=== PATIENT | female | born 1990 | race Caucasian/White ===

== ENCOUNTER → 2018-02-20 | Outpatient (CLI) | payer OTHER ==
--- NOTE | 2018-02-26 09:21 | MM ---
Reason for exam: screening (asymptomatic). Baseline mammogram. History: Family history of breast cancer in mother at age 47, breast cancer in 2 grandmothers, and breast cancer in aunt. Took hormonal contraceptives for 1 year beginning at age 14. Physical Findings: Nurse did not find any significant physical abnormalities on exam. MG Screening Mammo w CAD Bilateral CC and MLO view(s) were taken. The breast tissue is heterogeneously dense. This may lower the sensitivity of mammography. No suspicious abnormality. No significant new findings when compared with previous films. These results were verbally communicated with the patient and result sheet given to the patient on 02/20/18. ASSESSMENT: Negative, BI-RAD 1 RECOMMENDATION: Routine screening mammogram of both breasts at age 35. Patient should have next mammogram 10 years prior to first degree relative diagnosis of breast cancer, or sooner if clinnically indicated.
== END | disposition home or self-care (01) ==
LOC: RADMAMWWP 14:56
PROVIDERS: ATTEND Internal Medicine
DX: Z12.31 Encounter for screening mammogram for malignant neoplasm of breast (principal)
CPT/HCPCS: 77067

== ENCOUNTER 2018-07-20 10:00 | Emergency (ER) | payer OTHER ==
--- NOTE | 2018-07-20 10:54 | ED ---
Anxiety HPI - General Chief Complaint: Anxiety Stated Complaint: Dizzy, Clammy Hands Time Seen by Provider: 07/20/18 10:14 Source: patient Mode of arrival: ambulatory - History of Present Illness Initial Comments: 28-year-old female patient presents to the emergency department today for complaints of chest tightness, dizziness, and cold hands and feet. Patient states that she woke feeling this way this morning. Patient is concerned she may be withdrawing from a substance she uses known as Kratom. States that she mixes this with water and drinks it. She states she last used yesterday. She states she has had some mild nausea, but no vomiting. She denies any sweats or chest pain. Denies any alcohol or drug use. Denies any fevers or chills. Patient denies any recent rash, abdominal pain, diarrhea, constipation, back pain, numbness, tingling, hematuria, dysuria, urinary urgency, urinary frequency , headache, visual changes, or any other complaints. - Related Data Home Medications: Previous Rx's Medication Instructions Recorded LORazepam [Ativan] 1 mg PO BID 3 Days #6 tab 07/20/18 Allergies/Adverse Reactions: Allergies Allergy/AdvReac Type Severity Reaction Status Date / Time No Known Allergies Allergy Verified 07/20/18 12:15 Review of Systems ROS Statement: Those systems with pertinent positive or pertinent negative responses have been documented in the HPI. ROS Other: All systems not noted in ROS Statement are negative. Past Medical History Past Medical History: No Reported History History of Any Multi-Drug Resistant Organisms: None Reported Past Surgical History: Section Additional Past Surgical History / Comment(s): abdominal surgery for twisted bowel, wisdom teeth Past Psychological History: Anxiety Smoking Status: Current every day smoker Past Alcohol Use History: None Reported Past Drug Use History: None Reported General Exam Limitations: no limitations General appearance: alert, in no apparent distress, other (Physical well- developed, well-nourished adult female patient in no acute distress. Vital signs upon presentation are temperature 97.4F, pulse 90, respirations 20, blood pressure 122/80, pulse ox 99% on room air.) Eye exam: Present: normal appearance, PERRL, EOMI. Absent: scleral icterus, conjunctival injection, periorbital swelling ENT exam: Present: normal exam, normal oropharynx, mucous membranes moist Respiratory exam: Present: normal lung sounds bilaterally. Absent: respiratory distress, wheezes, rales, rhonchi, stridor Cardiovascular Exam: Present: regular rate, normal rhythm, normal heart sounds. Absent: systolic murmur, diastolic murmur, rubs, gallop, clicks GI/Abdominal exam: Present: soft, normal bowel sounds. Absent: distended, tenderness, guarding, rebound, rigid Extremities exam: Present: other (Hands and feet are cool to touch but neurovascular status is intact.) Neurological exam: Present: alert, oriented X3, CN II-XII intact Psychiatric exam: Present: normal affect, normal mood Skin exam: Present: warm, dry, intact, normal color. Absent: rash Course Vital Signs 07/20/18 10:03 Temperature 97.4 F L Pulse Rate 90 Respiratory 20 Rate Blood Pressure 122/80 O2 Sat by Pulse 99 Oximetry Medical Decision Making - Medical Decision Making 28-year-old female patient presents to the emergency department today for evaluation of dizziness, chest tightness, and cold hands and feet. Physical examination is relatively unremarkable. Lungs are clear to auscultation with good air movement. Chest x-ray shows no acute cardio pulmonary process. EKG shows normal sinus rhythm. Patient does admit to using Kratom an synthetic drug. She has not used this today. Her symptoms are most likely related to withdrawal from this. She'll be given Ativan for the next couple days. She is instructed to increase fluids. She is instructed to follow-up with her primary care physician for recheck in 1-2 days. Return parameters discussed in detail. They verbalize understanding and agree with this plan. - Lab Data Lab Results 07/20/18 Range/Units Unknown Urine HCG, Qual Not Detected (Not Detectd) - Radiology Data Radiology results: report reviewed, image reviewed Two-view x-ray of the chest is obtained. Report was reviewed in its entirety. Impression by Dr. Yoder shows no acute cardio pulmonary process. No significant change in prior studies. Disposition Clinical Impression: Anxiety, Drug withdrawal Disposition: HOME SELF-CARE Condition: Good Instructions: Anxiety (ED), Narcotic Withdrawal (ED) Additional Instructions: Take medication as directed. Follow-up through primary care physician for recheck as soon as possible. Return immediately for any new, worsening, or concerning symptoms Prescriptions: LORazepam [Ativan] 1 mg PO BID 3 Days #6 tab Is patient prescribed a controlled substance at d/c from ED?: Yes When asked, does pt state using other controlled substances?: No If prescribed controlled substance>3 days was MAPS reviewed?: Prescribed <3 Days Referrals: Gus Cleary MD [Primary Care Provider] - 1-2 days Time of Disposition: 12:34
--- NOTE | 2018-07-20 11:48 | XR ---
EXAMINATION TYPE: XR chest 2V DATE OF EXAM: 07/20/2018 COMPARISON: Chest x-ray and CTA chest May 27, 2013. HISTORY: Chest pain with irregular heartbeat TECHNIQUE: Frontal and lateral views of the chest are obtained. FINDINGS: There is no focal air space opacity, pleural effusion, or pneumothorax seen. The cardiac silhouette size is within normal limits. The osseous structures are intact. IMPRESSION: No acute cardiopulmonary process. No significant change from prior studies.
[2018-07-20] MEDS ORDERED: LORazepam 1 MG TAB PO STA (12:32)
[2018-07-20 12:55] LABS: Glucose,Whole Blood 83 mg/dL (75-99)
[2018-07-20 13:01] LABS: Amphetamine Screen,Urine Not Detected (NotDetected); Barbiturate Screen,Urine Not Detected (NotDetected); Benzodiazepines Screen,Urine Not Detected (NotDetected); Cocaine Screen,Urine Not Detected (NotDetected); Methadone Screen, Urine Not Detected (NotDetected); Opiate Screen,Urine Not Detected (NotDetected); Oxycodone Screen, Urine Not Detected (NotDetected); Phencyclidine Screen,Urine Not Detected (NotDetected); Tricyclic Antidepressant,Urine Not Detected (NotDetected); Urn Cannabinoid Scrn Not Detected (NotDetected)
[2018-07-20 13:07] VITALS: BP 108/70; PULSE 79; RESP 18; TEMP 97.5
== END 2018-07-20 13:01 | disposition home or self-care (01) ==
LOC: EC 10:00
DX: F41.9 Anxiety disorder, unspecified (principal); F19.939 Other psychoactive substance use, unspecified with withdrawal, unspecified; R07.89 Other chest pain; R42 Dizziness and giddiness; F17.200 Nicotine dependence, unspecified, uncomplicated
CPT/HCPCS: 36415; 71046; 80306; 81025; 93005; 99284

== ENCOUNTER 2018-12-09 18:39 | Emergency (ER) | payer OTHER ==
[2018-12-09 19:15] VITALS: RESP 18
[2018-12-09] MEDS ORDERED: KETOROLAC 30 MG/ML 1 ML VIAL IVP STA (19:21)
--- NOTE | 2018-12-09 19:27 | ED ---
Abdominal Pain HPI <Kit Mccall - Last Filed: 12/09/18 22:59> - General Source: patient, family Mode of arrival: ambulatory Limitations: no limitations <Tea Fernandez - Last Filed: 12/10/18 07:47> - General Chief Complaint: Abdominal Pain Stated Complaint: kidney pain - History of Present Illness Initial Comments: 28-year-old male presenting for right flank pain. Patient states that she was treated for a urinary tract infection about 2 weeks prior. She states she does not current dysuria however she has had some urgency and frequency. Patient states that she developed right flank pain that is somewhat on the left as well over the past 2 days. Patient states she has had fever and chills. Patient was concerned of a kidney infection. Patient denies history of kidney stones. Patient denies any chest pain dyspnea or dyspnea on exertion. She denies any hematuria. Patient denies nausea vomiting or diarrhea. Patient states she does have occasional crampy abdominal pain however was evaluated at a different hospital where CT of the abdomen and pelvis was obtained revealing no acute abnormality. Patient has since followed up with her primary care provider. Remaining review of system negative. Upon arrival patient's heart rate is elevated. Patient however does not appear toxic and is in no acute distress. Hemodynamically stable. (Tea Fernandez) - Related Data Home Medications Medication Instructions Recorded Confirmed Multivitamins, Thera [Multivitamin 1 tab PO DAILY 12/09/18 12/09/18 (formulary)] Omeprazole 20 mg PO DAILY 12/09/18 12/09/18 Allergies Allergy/AdvReac Type Severity Reaction Status Date / Time No Known Allergies Allergy Verified 12/09/18 20:25 Review of Systems ROS Other: All systems not noted in ROS Statement are negative. <Kit Mccall - Last Filed: 12/09/18 22:59> ROS Other: All systems not noted in ROS Statement are negative. <Tea Fernandez - Last Filed: 12/10/18 07:47> ROS Statement: Those systems with pertinent positive or pertinent negative responses have been documented in the HPI. Past Medical History Past Medical History: No Reported History History of Any Multi-Drug Resistant Organisms: None Reported Past Surgical History: Section Additional Past Surgical History / Comment(s): abdominal surgery for twisted bowel, wisdom teeth Past Psychological History: Anxiety Smoking Status: Current every day smoker Past Alcohol Use History: None Reported Past Drug Use History: None Reported <Tea Fernandez - Last Filed: 12/10/18 07:47> General Exam Limitations: no limitations <Tea Fernandez - Last Filed: 12/10/18 07:47> - General Exam Comments Initial Comments: General: The patient is awake and alert, in no distress, and does not appear acutely ill. Eye: +3 mm pupils are equal, round and reactive to light, extra-ocular movements are intact. No nystagmus. There is normal conjunctiva bilaterally. No signs of icterus. Ears, nose, mouth and throat: There are moist mucous membranes and no oral lesions. Neck: The neck is supple, there is no tenderness or JVD. Cardiovascular: There is a regular rate and rhythm. No murmur, rub or gallop is appreciated. Respiratory: Lungs are clear to auscultation, respirations are non-labored, breath sounds are equal. No wheezes, stridor, rales, or rhonchi. Gastrointestinal: non-distended, non-tender abdomen without masses or organomegaly noted. There is no rebound or guarding present. Right CVA tenderness. Bowel sounds are unremarkable. Musculoskeletal: Normal ROM, no tenderness. Strength 5/5. Sensation intact. Radial pulses equal bilaterally 2+. Neurological: A&O x 3. CN II-XII intact, There are no obvious motor or sensory deficits. Coordination appears grossly intact. Speech is normal. Skin: Skin is warm and dry and no rashes or lesions are noted. Psychiatric: Cooperative, appropriate mood & affect, normal judgment. (Tea Fernandez) Course Vital Signs 12/09/18 12/09/18 19:10 22:15 Temperature 98.6 F 98.0 F Pulse Rate 114 H 90 Respiratory 18 18 Rate Blood Pressure 105/62 99/64 O2 Sat by Pulse 100 97 Oximetry Medical Decision Making - Lab Data Result diagrams: 12/09/18 19:48 12/09/18 19:48 <Kit Mccall - Last Filed: 12/09/18 22:59> - Lab Data Result diagrams: 12/09/18 19:48 12/09/18 19:48 <Tea Fernandez - Last Filed: 12/10/18 07:47> - Medical Decision Making Patient is sent out to me by previous shift physician recreational assistant Tea Fernandez. Patient evaluated at bedside by myself reports that she is having ureteric symptoms. Oral examination showed mild erythema to the posterior oropharynx. Patient also having cramps and flulike symptoms. Vital sign out was follow-up with ultrasound. Labs are unremarkable. Ultrasound is negative. Patient clear for discharge. (Kit Mccall) 28-year-old male presented for right sided flank pain. Patient notes to chills and subjective fever at home. Patient states she was recently treated for urinary tract infection urinalysis revealed leukocyte esterase however no other signs of overt infection such as pyelonephritis. Patient has no leukocytosis. Patient is given 1 g of ceftriaxone. Given flank pain patient will have ultrasound the kidneys and daughter. Patient had recent CT of the abdomen and pelvis for a GI complaint last week at an outside facility she states that it was negative for acute process. She denies being told that there were stones. I did sign this patient out prior to the results the ultrasound, pt will have a little disposition determined by attending provider Dr. Mccall. (Tea Fernandez) - Lab Data Lab Results 12/09/18 12/09/18 12/09/18 Range/Units 19:48 19:48 19:48 WBC 4.2 (3.8-10.6) k/uL RBC 4.50 (3.80-5.40) m/uL Hgb 13.8 (11.4-16.0) gm/dL Hct 42.3 (34.0-46.0) % MCV 94.1 (80.0-100.0) fL MCH 30.8 (25.0-35.0) pg MCHC 32.7 (31.0-37.0) g/dL RDW 12.3 (11.5-15.5) % Plt Count 214 (150-450) k/uL Neutrophils % 80 % Lymphocytes % 11 % Monocytes % 4 % Eosinophils % 3 % Basophils % 1 % Neutrophils # 3.3 (1.3-7.7) k/uL Lymphocytes # 0.5 L (1.0-4.8) k/uL Monocytes # 0.2 (0-1.0) k/uL Eosinophils # 0.1 (0-0.7) k/uL Basophils # 0.0 (0-0.2) k/uL Sodium 138 (137-145) mmol/L Potassium 4.7 (3.5-5.1) mmol/L Chloride 103 (98-107) mmol/L Carbon Dioxide 26 (22-30) mmol/L Anion Gap 9 mmol/L BUN 12 (7-17) mg/dL Creatinine 0.69 (0.52-1.04) mg/dL Est GFR (CKD-EPI)AfAm >90 (>60 ml/min/1.73 sqM) Est GFR (CKD-EPI)NonAf >90 (>60 ml/min/1.73 sqM) Glucose 78 (74-99) mg/dL Plasma Lactic Acid Eric (0.7-2.0) mmol/L Calcium 10.0 (8.4-10.2) mg/dL Total Bilirubin 0.3 (0.2-1.3) mg/dL AST 27 (14-36) U/L ALT 30 (9-52) U/L Alkaline Phosphatase 35 L (38-126) U/L Total Protein 7.3 (6.3-8.2) g/dL Albumin 4.7 (3.5-5.0) g/dL Urine Color Light Yellow Urine Appearance Clear (Clear) Urine pH 7.0 (5.0-8.0) Ur Specific [place] 1.008 (1.001-1.035) Urine Protein Negative (Negative) Urine Glucose (UA) Negative (Negative) Urine Ketones Negative (Negative) Urine Blood Negative (Negative) Urine Nitrite Negative (Negative) Urine Bilirubin Negative (Negative) Urine Urobilinogen <2.0 (<2.0) mg/dL Ur Leukocyte Esterase Small H (Negative) Urine WBC 1 (0-5) /hpf Ur Squamous Epith Cells 2 (0-4) /hpf Urine Bacteria Rare H (None) /hpf Urine Mucus Rare H (None) /hpf Urine HCG, Qual (Not Detectd) 12/09/18 12/09/18 Range/Units 19:48 20:00 WBC (3.8-10.6) k/uL RBC (3.80-5.40) m/uL Hgb (11.4-16.0) gm/dL Hct (34.0-46.0) % MCV (80.0-100.0) fL MCH (25.0-35.0) pg MCHC (31.0-37.0) g/dL RDW (11.5-15.5) % Plt Count (150-450) k/uL Neutrophils % % Lymphocytes % % Monocytes % % Eosinophils % % Basophils % % Neutrophils # (1.3-7.7) k/uL Lymphocytes # (1.0-4.8) k/uL Monocytes # (0-1.0) k/uL Eosinophils # (0-0.7) k/uL Basophils # (0-0.2) k/uL Sodium (137-145) mmol/L Potassium (3.5-5.1) mmol/L Chloride (98-107) mmol/L Carbon Dioxide (22-30) mmol/L Anion Gap mmol/L BUN (7-17) mg/dL Creatinine (0.52-1.04) mg/dL Est GFR (CKD-EPI)AfAm (>60 ml/min/1.73 sqM) Est GFR (CKD-EPI)NonAf (>60 ml/min/1.73 sqM) Glucose (74-99) mg/dL Plasma Lactic Acid Eric 1.1 (0.7-2.0) mmol/L Calcium (8.4-10.2) mg/dL Total Bilirubin (0.2-1.3) mg/dL AST (14-36) U/L ALT (9-52) U/L Alkaline Phosphatase (38-126) U/L Total Protein (6.3-8.2) g/dL Albumin (3.5-5.0) g/dL Urine Color Urine Appearance (Clear) Urine pH (5.0-8.0) Ur Specific [place] (1.001-1.035) Urine Protein (Negative) Urine Glucose (UA) (Negative) Urine Ketones (Negative) Urine Blood (Negative) Urine Nitrite (Negative) Urine Bilirubin (Negative) Urine Urobilinogen (<2.0) mg/dL Ur Leukocyte Esterase (Negative) Urine WBC (0-5) /hpf Ur Squamous Epith Cells (0-4) /hpf Urine Bacteria (None) /hpf Urine Mucus (None) /hpf Urine HCG, Qual Not Detected (Not Detectd) Disposition Time of Disposition: 23:00 <Kit Mccall Filed: 12/09/18 22:59> Is patient prescribed a controlled substance at d/c from ED?: No <Tea Fernandez - Last Filed: 12/10/18 07:47> Clinical Impression: URI (upper respiratory infection) Disposition: HOME SELF-CARE Condition: Good Instructions (If sedation given, give patient instructions): Flank Pain (ED) Referrals: Gus Cleary MD [Primary Care Provider] - 1-2 days
[2018-12-09] MEDS ORDERED: SODIUM CHLORIDE 0.9% 1,000 ML IV ONE (20:01)
[2018-12-09 20:02] LABS: Basophils % (A) 1 %; Eosinophils # (A) 0.1 k/uL (0-0.7); Eosinophils % (A) 3 %; HCT 42.3 % (34.0-46.0); HGB 13.8 gm/dL (11.4-16.0); Lymphocytes # (A) 0.5 k/uL (1.0-4.8); Lymphocytes % (A) 11 %; MCH 30.8 pg (25.0-35.0); MCHC 32.7 g/dL (31.0-37.0); MCV 94.1 fL (80.0-100.0); Mean Platelet Volume 7.5; Monocytes # (A) 0.2 k/uL (0-1.0); Monocytes % (A) 4 %; Neutrophils # (A) 3.3 k/uL (1.3-7.7); Neutrophils % (A) 80 %; Platelet Count 214 k/uL (150-450); RDW 12.3 % (11.5-15.5); WBC 4.2 k/uL (3.8-10.6)
[2018-12-09] MEDS ORDERED: cefTRIAXone IN SWFI 1,000 MG/10 ML SYRINGE IVP STA (20:02)
[2018-12-09 20:06] LABS: Appearance,Urine Clear (Clear); Bacteria,Urine Rare /hpf; Bilirubin,Urine Negative (Negative); Blood,Urine Negative (Negative); Color,Urine Light Yellow; Glucose,Urine (UA) Negative (Negative); Ketones,Urine Negative (Negative); Leukocyte Esterase,Urine Small (Negative); Mucus,Urine Rare /hpf; Nitrite,Urine Negative (Negative); Protein,Urine Negative (Negative); Specific Gravity,Urine 1.008 (1.001-1.035); Squamous Epithelial Cell,Urine 2 /hpf (0-4); Urobilinogen,Urine <2.0 mg/dL (<2.0); WBC,Urine 1 /hpf (0-5)
[2018-12-09 20:08] LABS: ALT 30 U/L (9-52); AST 27 U/L (14-36); Albumin 4.7 g/dL (3.5-5.0); Alkaline Phosphatase 35 U/L (38-126); Anion Gap 9 mmol/L; Blood Urea Nitrogen 12 mg/dL (7-17); Carbon Dioxide 26 mmol/L (22-30); Chloride 103 mmol/L (98-107); Glucose 78 mg/dL (74-99); Potassium 4.7 mmol/L (3.5-5.1); Sodium 138 mmol/L (137-145); Total Bilirubin 0.3 mg/dL (0.2-1.3); Total Protein 7.3 g/dL (6.3-8.2)
--- NOTE | 2018-12-09 22:21 | US ---
EXAM: US Retroperitoneal Limited, Renal CLINICAL HISTORY: Stone TECHNIQUE: Real-time ultrasound of the retroperitoneum (limited) with image documentation. COMPARISON: No relevant prior studies available. FINDINGS: Right kidney: Right kidney measures up to 10.8 cm. No stones. No hydronephrosis. Left kidney: Left kidney measures up to 10 cm. No stones. No hydronephrosis. Bladder: Urinary bladder is unremarkable. Bilateral ureteral jets were not visualized. IMPRESSION: No acute findings.
[2018-12-09 22:25] VITALS: BP 99/64; PULSE 90; TEMP 98
--- NOTE | 2018-12-11 08:04 | CDI ---
Documentation Clarification OP Dear Kit PARRA DO, As reviewed the chart, patient complaint is abdomen pain and recently treated for UTI, labs and Ultrasound performed for UTI. But clinical impression given as upper respiratory infection. Please guide me on this. Thank you, Maame Navarro Chopper Gun Operator If you have any question, Please contact manager chinese at [phone] [facility]
== END 2018-12-09 23:13 | disposition home or self-care (01) ==
LOC: EC 18:39
DX: J06.9 Acute upper respiratory infection, unspecified (principal); R10.9 Unspecified abdominal pain; F17.200 Nicotine dependence, unspecified, uncomplicated; Z79.899 Other long term (current) drug therapy
CPT/HCPCS: 36415; 80053; 83605; 85025; 81001; 81025; 87040; 87086; 76770; 99284; 96374; 96375; 96361 ×3; J0696; J1885

== ENCOUNTER 2019-08-22 20:53 | Emergency (ER) | payer OTHER ==
[2019-08-22 21:34] LABS: Appearance,Urine Clear (Clear); Bacteria,Urine Rare /hpf; Bilirubin,Urine Negative (Negative); Blood,Urine Small (Negative); Color,Urine Light Yellow; Glucose,Urine (UA) Negative (Negative); Ketones,Urine Negative (Negative); Leukocyte Esterase,Urine Negative (Negative); Nitrite,Urine Negative (Negative); Protein,Urine Negative (Negative); RBC,Urine 2 /hpf (0-5); Specific Gravity,Urine 1.003 (1.001-1.035); Squamous Epithelial Cell,Urine 3 /hpf (0-4); Urobilinogen,Urine <2.0 mg/dL (<2.0); WBC,Urine 2 /hpf (0-5)
[2019-08-22] MEDS ORDERED: IPRATROPIUM-ALBUTEROL 3 ML NEB INHALATION STA (22:28)
[2019-08-22 22:53] LABS: Glucose,Whole Blood 102 mg/dL (75-99)
--- NOTE | 2019-08-22 23:07 | XR ---
EXAMINATION TYPE: XR chest 2V DATE OF EXAM: 08/22/2019 COMPARISON: 07/20/2018 HISTORY: Cough TECHNIQUE: FINDINGS: Heart and mediastinum are normal. Lungs are clear. Diaphragm is normal. Bony thorax appears normal. IMPRESSION: Normal chest. No change.
[2019-08-22] MEDS ORDERED: predniSONE 50 MG TAB PO STA (23:15)
--- NOTE | 2019-08-22 23:17 | ED ---
General Adult HPI - General Chief complaint: Urogenital Stated complaint: Poss kidney infection Time Seen by Provider: 08/22/19 21:48 Source: patient Mode of arrival: ambulatory Limitations: no limitations - History of Present Illness Initial comments: 29-year-old female patient presents to the emergency department today for evaluation of bilateral kidney pain. Patient is concerned she may have urinary tract infection. Patient states she has been urinating freely. Denies any dysuria or hematuria. Denies any abnormal vaginal bleeding or discharge. Denies fevers but states she has been chilled. Patient has been sick with upper respiratory infection and cough for the last several days. Patient states that most of her symptoms have resolved however her cough is persisting. States she did have temperatures as high as 103 those have also resolved. Denies any sputum production. Denies any shortness of breath. She does admit to smoking cigarettes. Patient denies any recent rash, chest pain, abdominal pain, nausea, vomiting, diarrhea, constipation, numbness, tingling, dizziness, weakness, headache, visual changes, or any other complaints. - Related Data Home Medications Medication Instructions Recorded Confirmed Multivitamins, Thera [Multivitamin 1 tab PO DAILY 12/09/18 12/09/18 (formulary)] Omeprazole 20 mg PO DAILY 12/09/18 12/09/18 Previous Rx's Medication Instructions Recorded Albuterol Sulfate [Proair Hfa] 1 - 2 puff INHALATION Q6HR PRN #1 08/22/19 inhaler guaiFENesin-DM 600/30MG [Mucinex 1 each PO Q12HR #10 tab.er.12h 08/22/19 Dm] predniSONE 50 mg PO DAILY #5 tablet 08/22/19 Allergies Allergy/AdvReac Type Severity Reaction Status Date / Time No Known Allergies Allergy Verified 08/22/19 21:12 Review of Systems ROS Statement: Those systems with pertinent positive or pertinent negative responses have been documented in the HPI. ROS Other: All systems not noted in ROS Statement are negative. Past Medical History Past Medical History: No Reported History History of Any Multi-Drug Resistant Organisms: None Reported Past Surgical History: Section Additional Past Surgical History / Comment(s): abdominal surgery for twisted bowel, wisdom teeth Past Psychological History: Anxiety Smoking Status: Current every day smoker Past Alcohol Use History: None Reported Past Drug Use History: None Reported General Exam Limitations: no limitations General appearance: alert, in no apparent distress, other (Physical well- developed, well-nourished adult female patient in no acute distress. Vital signs upon presentation are temperature 98.8F, pulse 83, respirations 20, blood pressure 108/78, pulse ox 100% on room air.) Eye exam: Present: normal appearance, PERRL, EOMI. Absent: scleral icterus, conjunctival injection, periorbital swelling ENT exam: Present: normal exam, normal oropharynx, mucous membranes moist Respiratory exam: Present: wheezes (Faint expiratory wheezing noted in the posterior lung [place]). Absent: respiratory distress, rales, rhonchi, stridor Cardiovascular Exam: Present: regular rate, normal rhythm, normal heart sounds. Absent: systolic murmur, diastolic murmur, rubs, gallop, clicks GI/Abdominal exam: Present: soft, normal bowel sounds. Absent: distended, tenderness, guarding, rebound, rigid Back exam: Present: normal inspection. Absent: CVA tenderness (R), CVA tenderness (L) Neurological exam: Present: alert, oriented X3, CN II-XII intact Psychiatric exam: Present: normal affect, normal mood Skin exam: Present: warm, dry, intact, normal color. Absent: rash Course Vital Signs 08/22/19 08/22/19 08/22/19 21:10 22:12 22:41 Temperature 98.8 F Pulse Rate 83 86 84 Respiratory 20 18 Rate Blood Pressure 108/78 115/70 O2 Sat by Pulse 100 98 Oximetry 08/22/19 08/23/19 22:47 00:18 Temperature 98.2 F Pulse Rate 84 74 Respiratory 17 Rate Blood Pressure 118/69 O2 Sat by Pulse 98 Oximetry Medical Decision Making - Medical Decision Making 29-year-old female patient presents to the emergency department today for evaluation of bilateral flank pain. Physical examination revealed A tray wheezing in the posterior lung [place]. No CVA tenderness. Urinalysis shows no evidence for infection. Did perform chest x-ray as patient does have a cough. There is no signs of pneumonia. Patient symptoms are consistent with acute br onchitis, saw her pain may be related to this. We'll discharge with steroid prescription, Pro Air inhaler, and Mucinex. She is instructed to follow up with her primary care physician for recheck in 1-2 days. Return parameters were discussed in detail. She verbalizes understanding and agrees with this plan. - Lab Data Lab Results 08/22/19 08/22/19 08/22/19 Range/Units 21:14 21:14 22:50 POC Glucose (mg/dL) 102 H (75-99) mg/dL POC Glu Glazier Supervisor ID Mila Kaur Urine Color Light Yellow Urine Appearance Clear (Clear) Urine pH 7.0 (5.0-8.0) Ur Specific [place] 1.003 (1.001-1.035) Urine Protein Negative (Negative) Urine Glucose (UA) Negative (Negative) Urine Ketones Negative (Negative) Urine Blood Small H (Negative) Urine Nitrite Negative (Negative) Urine Bilirubin Negative (Negative) Urine Urobilinogen <2.0 (<2.0) mg/dL Ur Leukocyte Esterase Negative (Negative) Urine RBC 2 (0-5) /hpf Urine WBC 2 (0-5) /hpf Ur Squamous Epith Cells 3 (0-4) /hpf Urine Bacteria Rare H (None) /hpf Urine HCG, Qual Not Detected (Not Detectd) - Radiology Data Radiology results: report reviewed, image reviewed Two-view x-ray of the chest is obtained. Report reviewed in its entirety. Impression by Dr. Valdez shows normal chest. No change Disposition Clinical Impression: Acute bronchitis Disposition: HOME SELF-CARE Condition: Good Instructions (If sedation given, give patient instructions): Acute Bronchitis (ED) Additional Instructions: Increase fluids. Rest. Take medications as directed. Follow-up with primary care physician for recheck in 1-2 days. Return to the emergency department immediately for any new, worsening, or concerning symptoms. Prescriptions: guaiFENesin-DM 600/30MG [Mucinex Dm] 1 each PO Q12HR #10 tab.er.12h predniSONE 50 mg PO DAILY #5 tablet Albuterol Sulfate [Proair Hfa] 1 - 2 puff INHALATION Q6HR PRN #1 inhaler PRN Reason: Shortness Of Breath Is patient prescribed a controlled substance at d/c from ED?: No Referrals: Gus Cleary MD [Primary Care Provider] - 1-2 days Time of Disposition: 23:17
[2019-08-23 00:19] VITALS: BP 118/69; PULSE 74; RESP 17; TEMP 98.2
== END 2019-08-22 23:50 | disposition home or self-care (01) ==
LOC: EC 20:53
DX: J20.9 Acute bronchitis, unspecified (principal); R10.9 Unspecified abdominal pain; F17.200 Nicotine dependence, unspecified, uncomplicated; Z79.899 Other long term (current) drug therapy; Z98.890 Other specified postprocedural states
CPT/HCPCS: 36415; 94640; 81001; 81025; 71046; 99284; J7512

== ENCOUNTER → 2020-05-22 | Outpatient (CLI) | payer BC ==
--- NOTE | 2020-05-23 06:58 | US ---
EXAMINATION TYPE: US pelvic complete DATE OF EXAM: 05/22/2020 COMPARISON: NONE CLINICAL HISTORY: R10.2 pelvic pain N83.0 Follicular cyst of ovary. burning pain when ovulating, , c-sections, tubal TECHNIQUE: TA. Transabdominal sonographic images of the pelvis were acquired. Date of LMP: 05/15/2020 EXAM MEASUREMENTS: Uterus: 9.3 x 5.3 x 4.4 cm Endometrial Stripe: 1.3 cm Right Ovary: 2.5 x 1.6 x 2.2 cm Left Ovary: 4.4 x 3.2 x 1.9 cm 1. Uterus: Anteverted wnl 2. Endometrium: wnl 3. Right Ovary: wnl 4. Left Ovary: 2.0cm dominate follicle seen 5. Bilateral Adnexa: wnl 6. Posterior cul-de-sac: wnl Anteverted uterus. Endometrial stripe measures thickening towards the fundus towards fundus study for proliferative phase of menstrual cycle. No free fluid in pelvic cul-de-sac. Slight asymmetric enlargement of left ovary versus right ovary due to 2.0 cm peripheral prominent fol licle or thin-walled cyst. No suspicious adnexal lesions bilaterally. IMPRESSION: Slightly suboptimal study as transvaginal mastication are performed. Abnormal thickening of the endometrium near the fundus noted for proliferative phase of menstrual cycle.
== END | disposition home or self-care (01) ==
LOC: RADUSWWP 16:27
PROVIDERS: ATTEND Internal Medicine
DX: R93.89 Abnormal findings on diagnostic imaging of other specified body structures (principal); N83.209 Unspecified ovarian cyst, unspecified side; R10.2 Pelvic and perineal pain
CPT/HCPCS: 76856

== ENCOUNTER 2022-06-21 23:10 | Emergency (ER) | payer BC ==
[2022-06-21 23:17] VITALS: TEMP 97.9
[2022-06-22 00:07] LABS: Basophils # (A) 0.1 k/uL (0-0.2); Basophils % (A) 2 %; Eosinophils # (A) 0.1 k/uL (0-0.7); Eosinophils % (A) 3 %; HCT 39.2 % (34.0-46.0); HGB 13.6 gm/dL (11.4-16.0); Lymphocytes # (A) 1.5 k/uL (1.0-4.8); Lymphocytes % (A) 28 %; MCHC 34.8 g/dL (31.0-37.0); MCV 94.8 fL (80.0-100.0); Mean Platelet Volume 10.4; Monocytes # (A) 0.3 k/uL (0-1.0); Monocytes % (A) 6 %; Neutrophils # (A) 3.2 k/uL (1.3-7.7); Neutrophils % (A) 61 %; Platelet Count 261 k/uL (150-450); RBC 4.13 m/uL (3.80-5.40); RDW 11.6 % (11.5-15.5); WBC 5.4 k/uL (3.8-10.6)
[2022-06-22 00:11] LABS: Partial Thromboplastin Time 25.2 sec (22.0-30.0); Prothrombin Time 11.1 sec (9.0-12.0)
[2022-06-22 00:30] LABS: ALT 13 U/L (4-34); AST 17 U/L (14-36); African American GFR (CKD) >90 (>60 ml/min/1.73 sqM); Albumin 4.9 g/dL (3.5-5.0); Alkaline Phosphatase 32 U/L (38-126); Anion Gap 9 mmol/L; Blood Urea Nitrogen 20 mg/dL (7-17); Calcium 9.7 mg/dL (8.4-10.2); Carbon Dioxide 26 mmol/L (22-30); Chloride 103 mmol/L (98-107); Glucose 86 mg/dL (74-99); Non-African American GFR(CKD) >90 (>60 ml/min/1.73 sqM); Sodium 138 mmol/L (137-145); Total Bilirubin 0.3 mg/dL (0.2-1.3); Total Protein 7.1 g/dL (6.3-8.2)
[2022-06-22 01:08] LABS: Appearance,Urine Clear (Clear); Bacteria,Urine Rare /hpf; Bilirubin,Urine Negative (Negative); Blood,Urine Negative (Negative); Color,Urine Light Yellow; Glucose,Urine (UA) Negative (Negative); Ketones,Urine Negative (Negative); Leukocyte Esterase,Urine Small (Negative); Mucus,Urine Rare /hpf; Nitrite,Urine Negative (Negative); Protein,Urine Negative (Negative); Specific Gravity,Urine 1.017 (1.001-1.035); Squamous Epithelial Cell,Urine 8 /hpf (0-4); Urobilinogen,Urine <2.0 mg/dL (<2.0); WBC,Urine 4 /hpf (0-5)
--- NOTE | 2022-06-22 01:30 | ED ---
General Adult HPI - General Chief complaint: Neuro Symptoms/Deficit Stated complaint: Facial droop Time Seen by Provider: 06/21/22 23:26 Source: patient, RN notes reviewed Mode of arrival: ambulatory Limitations: no limitations - History of Present Illness Initial comments: 32-year-old female presents to the emergency department for evaluation of multip le complaints. Patient states she is concerned about vertebral artery dissection after manipulating her neck on June 03. States she was having jaw pain that she attributed to a neck issue therefore googled instructions on chiropractic adjustment. States since then she has had discomfort on the right side of her neck along with involuntary facial twitching. Provides video of facial twitching which appears to be isolated to the lips. Reports occasional headache and "feeling off." Reports right sided facial droop pain last week, though has not had any since. Has not been seen by her PCP for these complaints. Has since undergone care team coordinator scheduler and had her neck adjusted. Is concerned about vertebral artery dissection. Denies blurry vision, extremity weakness, gait disturbance, chest pain, shortness of breath, abdominal pain, nausea, vomiting, diarrhea, or dysuria. - Related Data Home Medications Medication Instructions Recorded Confirmed Multivitamins, Thera [Multivitamin 1 tab PO DAILY 12/09/18 12/09/18 (formulary)] Omeprazole 20 mg PO DAILY 12/09/18 12/09/18 Previous Rx's Medication Instructions Recorded Albuterol Sulfate [Proair Hfa] 1 - 2 puff INHALATION Q6HR PRN #1 08/22/19 inhaler guaiFENesin-DM 600/30MG [Mucinex 1 each PO Q12HR #10 tab.er.12h 08/22/19 Dm] predniSONE 50 mg PO DAILY #5 tablet 08/22/19 predniSONE 50 mg PO DAILY #5 tab 06/22/22 Allergies Allergy/AdvReac Type Severity Reaction Status Date / Time No Known Allergies Allergy Verified 06/21/22 23:12 Review of Systems ROS Statement: Those systems with pertinent positive or pertinent negative responses have been documented in the HPI. ROS Other: All systems not noted in ROS Statement are negative. Past Medical History Past Medical History: No Reported History History of Any Multi-Drug Resistant Organisms: None Reported Past Surgical History: Section Additional Past Surgical History / Comment(s): abdominal surgery for twisted bowel, wisdom teeth Past Psychological History: Anxiety Smoking Status: Never smoker Past Alcohol Use History: None Reported Past Drug Use History: None Reported General Exam Limitations: no limitations General appearance: alert, in no apparent distress, anxious (This is an anxious well appearing 42-year-old female in no acute distress.) Head exam: Present: atraumatic, normocephalic, normal inspection Eye exam: Present: normal appearance, PERRL, EOMI. Absent: scleral icterus, conjunctival injection, periorbital swelling ENT exam: Present: normal oropharynx, mucous membranes moist, TM's normal bilaterally Expanded Throat exam: normal inspection Neck exam: Present: normal inspection, tenderness (Generalized tenderness upon palpation of the right side of the neck), full ROM. Absent: meningismus, lymphadenopathy Respiratory exam: Present: normal lung sounds bilaterally. Absent: respiratory distress, wheezes, rales, rhonchi, stridor Cardiovascular Exam: Present: regular rate, normal rhythm, tachycardia, normal heart sounds. Absent: systolic murmur, diastolic murmur, rubs, gallop, clicks GI/Abdominal exam: Present: soft, normal bowel sounds. Absent: distended, tenderness, guarding, rebound, rigid Extremities exam: Present: normal inspection, full ROM, normal capillary refill. Absent: pedal edema Back exam: Present: normal inspection, full ROM. Absent: CVA tenderness (R), CVA tenderness (L), paraspinal tenderness, vertebral tenderness Neurological exam: Present: alert, oriented X3, CN II-XII intact, normal gait, reflexes normal Expanded Patient oriented to: Present: person, place, time Speech: Present: fluid speech Cranial nerves: EOM's Intact: Normal, Tongue Deviation: Normal, Nystagmus: Jacquelin l, Facial Sensation: Normal, Facial Palsy with Forehead Movement: Normal Ataxia: Absent: yes Cerebellar function: Finger to Nose: Normal Motor strength exam: RUE: 5, LUE: 5, RLE: 5, LLE: 5 Eye Response: (4) open spontaneously Motor Response: (6) obeys commands Verbal Response: (5) oriented [place] Total: 15 Psychiatric exam: Present: anxious Skin exam: Present: warm, dry, intact, normal color. Absent: rash Course Vital Signs 06/21/22 06/22/22 06/22/22 23:12 01:42 02:47 Temperature 97.9 F Pulse Rate 124 H 87 82 Respiratory 16 18 18 Rate Blood Pressure 113/71 106/66 104/61 O2 Sat by Pulse 98 98 100 Oximetry Medical Decision Making - Medical Decision Making This is a well-appearing anxious 32-year-old female with no significant past medical history who presents to the emergency department with multiple vague complaints for which she is concerned about vertebral artery dissection after manual manipulation of her neck early this month. Physical exam findings are unremarkable. Patient is neurologically intact. Laboratory studies are ob tained and are unremarkable. EKG shows normal sinus rhythm. CT of the brain was negative. CT angiograms were also negative. Patient is reassured by these findings. She will be discharged home to follow up with her PCP for recheck as needed. Encouraged to avoid any further manipulation of her neck. Return parameters were discussed in detail. Patient verbalizes understanding and agrees with this plan. Attending: Nghia. - Lab Data Result diagrams: 06/21/22 23:54 06/21/22 23:54 Lab Results 06/21/22 06/21/22 06/21/22 Range/Units 23:54 23:54 23:54 WBC 5.4 (3.8-10.6) k/uL RBC 4.13 (3.80-5.40) m/uL Hgb 13.6 (11.4-16.0) gm/dL Hct 39.2 (34.0-46.0) % MCV 94.8 (80.0-100.0) fL MCH 33.0 (25.0-35.0) pg MCHC 34.8 (31.0-37.0) g/dL RDW 11.6 (11.5-15.5) % Plt Count 261 (150-450) k/uL MPV 10.4 Neutrophils % 61 % Lymphocytes % 28 % Monocytes % 6 % Eosinophils % 3 % Basophils % 2 % Neutrophils # 3.2 (1.3-7.7) k/uL Lymphocytes # 1.5 (1.0-4.8) k/uL Monocytes # 0.3 (0-1.0) k/uL Eosinophils # 0.1 (0-0.7) k/uL Basophils # 0.1 (0-0.2) k/uL PT 11.1 (9.0-12.0) sec INR 1.0 (<1.2) APTT 25.2 (22.0-30.0) sec Sodium 138 (137-145) mmol/L Potassium 4.0 (3.5-5.1) mmol/L Chloride 103 (98-107) mmol/L Carbon Dioxide 26 (22-30) mmol/L Anion Gap 9 mmol/L BUN 20 H (7-17) mg/dL Creatinine 0.77 (0.52-1.04) mg/dL Est GFR (CKD-EPI)AfAm >90 (>60 ml/min/1.73 sqM) Est GFR (CKD-EPI)NonAf >90 (>60 ml/min/1.73 sqM) Glucose 86 (74-99) mg/dL Calcium 9.7 (8.4-10.2) mg/dL Total Bilirubin 0.3 (0.2-1.3) mg/dL AST 17 (14-36) U/L ALT 13 (4-34) U/L Alkaline Phosphatase 32 L (38-126) U/L Total Protein 7.1 (6.3-8.2) g/dL Albumin 4.9 (3.5-5.0) g/dL Urine Color Urine Appearance (Clear) Urine pH (5.0-8.0) Ur Specific [place] (1.001-1.035) Urine Protein (Negative) Urine Glucose (UA) (Negative) Urine Ketones (Negative) Urine Blood (Negative) Urine Nitrite (Negative) Urine Bilirubin (Negative) Urine Urobilinogen (<2.0) mg/dL Ur Leukocyte Esterase (Negative) Urine WBC (0-5) /hpf Ur Squamous Epith Cells (0-4) /hpf Urine Bacteria (None) /hpf Urine Mucus (None) /hpf Urine HCG, Qual (Not Detectd) 06/22/22 06/22/22 Range/Units 00:30 00:56 WBC (3.8-10.6) k/uL RBC (3.80-5.40) m/uL Hgb (11.4-16.0) gm/dL Hct (34.0-46.0) % MCV (80.0-100.0) fL MCH (25.0-35.0) pg MCHC (31.0-37.0) g/dL RDW (11.5-15.5) % Plt Count (150-450) k/uL MPV Neutrophils % % Lymphocytes % % Monocytes % % Eosinophils % % Basophils % % Neutrophils # (1.3-7.7) k/uL Lymphocytes # (1.0-4.8) k/uL Monocytes # (0-1.0) k/uL Eosinophils # (0-0.7) k/uL Basophils # (0-0.2) k/uL PT (9.0-12.0) sec INR (<1.2) APTT (22.0-30.0) sec Sodium (137-145) mmol/L Potassium (3.5-5.1) mmol/L Chloride (98-107) mmol/L Carbon Dioxide (22-30) mmol/L Anion Gap mmol/L BUN (7-17) mg/dL Creatinine (0.52-1.04) mg/dL Est GFR (CKD-EPI)AfAm (>60 ml/min/1.73 sqM) Est GFR (CKD-EPI)NonAf (>60 ml/min/1.73 sqM) Glucose (74-99) mg/dL Calcium (8.4-10.2) mg/dL Total Bilirubin (0.2-1.3) mg/dL AST (14-36) U/L ALT (4-34) U/L Alkaline Phosphatase (38-126) U/L Total Protein (6.3-8.2) g/dL Albumin (3.5-5.0) g/dL Urine Color Light Yellow Urine Appearance Clear (Clear) Urine pH 6.0 (5.0-8.0) Ur Specific [place] 1.017 (1.001-1.035) Urine Protein Negative (Negative) Urine Glucose (UA) Negative (Negative) Urine Ketones Negative (Negative) Urine Blood Negative (Negative) Urine Nitrite Negative (Negative) Urine Bilirubin Negative (Negative) Urine Urobilinogen <2.0 (<2.0) mg/dL Ur Leukocyte Esterase Small H (Negative) Urine WBC 4 (0-5) /hpf Ur Squamous Epith Cells 8 H (0-4) /hpf Urine Bacteria Rare H (None) /hpf Urine Mucus Rare H (None) /hpf Urine HCG, Qual Not Detected (Not Detectd) - EKG Data EKG shows normal: sinus rhythm Rate: normal EKG Comments: EKG obtained that 2326 shows sinus rhythm with nonspecific T-wave abnormality. Ventricular rate 82, AK interval 135, QRS duration 86, QT/QTC 361/400. Interpretation borderline ECG. No old EKG for comparison. There is no ectopy or ST segment changes. - Radiology Data Radiology results: report reviewed, image reviewed CTA head and neck was obtained. Report was reviewed in its entirety. Impression per Dr. Valle as negative CT angiogram of the neck. Negative CT angiogram of the brain. CT of the brain was obtained. Report was reviewed in its entirety. Impression per Dr. Valle is negative unenhanced head computed tomography scan. Disposition Clinical Impression: Facial paresthesia, Neck pain Disposition: HOME SELF-CARE Condition: Stable Instructions (If sedation given, give patient instructions): Paresthesia (ED) Additional Instructions: Take steroid as prescribed. Rest. Apply warm moist heat to the right side of the neck and shoulder. Avoid manipulation of the neck. Follow-up with your PCP for a recheck on Friday. Return to the emergency department with any new, worsening, or concerning s ymptoms. Prescriptions: predniSONE 50 mg PO DAILY #5 tab Is patient prescribed a controlled substance at d/c from ED?: No Referrals: Gus Cleary MD [Primary Care Provider] - 1-2 days Time of Disposition: 02:36
--- NOTE | 2022-06-22 01:37 | CT ---
EXAMINATION TYPE: CT brain wo con DATE OF EXAM: 06/22/2022 COMPARISON: None HISTORY: Facial droop, facial muscle spasms CT DLP: 1417.3 mGycm Automated exposure control for dose reduction was used. Images of the brain obtained with no contrast. Ventricles and sulci appear normal. There is no mass effect or midline shift. No sign of intracranial hemorrhage. The calvarium is intact. There is normal aeration of the mastoid sinuses. IMPRESSION: Negative unenhanced head CT scan.
[2022-06-22 01:43] VITALS: RESP 18
--- NOTE | 2022-06-22 01:45 | CT ---
EXAMINATION TYPE: CT angio head neck DATE OF EXAM: 06/22/2022 COMPARISON: None HISTORY: Facial droop, facial muscle spasms CT DLP: 1417.3 mGycm Automated exposure control for dose reduction was used. CONTRAST: Performed with IV Contrast, patient injected with 100ml mL of Isovue 370. Images obtained from the aortic arch to the vertex of the brain with the IV contrast. There are Three -D postprocessed images. There is normal branching pattern of the great vessels on the aortic arch. There is bilateral arteria l flow in the subclavian arteries. There is arterial flow in the common internal and external carotid arteries bilaterally. There is wide patency of the carotid artery bifurcations. There is arterial fl ow in both vertebral arteries which are widely patent. There is arterial flow in the vertebrobasilar artery system. No evidence of carotid or vertebral artery aneurysm or dissection. There is arterial flow within the anterior middle and posterior cerebral arteries bilaterally. No mas s effect. No evidence of intracranial aneurysm or neovascularity. No evidence of intracranial hemodyn amic arterial stenosis. There is normal enhancement of the venous sinuses. IMPRESSION: Negative CT angiogram of the neck. Negative CT angiogram of the brain.
[2022-06-22 02:48] VITALS: BP 104/61; PULSE 82
== END 2022-06-22 02:47 | disposition home or self-care (01) ==
LOC: EC 23:10
DX: R20.2 Paresthesia of skin (principal); M54.2 Cervicalgia
CPT/HCPCS: 36415; 93005; 80053; 85025; 85610; 85730; 81001; 81025; 70496; 70450; 70498; 99284; Q9967

== ENCOUNTER 2022-07-09 22:34 | Emergency (ER) | payer BC ==
[2022-07-10] MEDS ORDERED: KETOROLAC 15 MG/ML 1 ML VIAL IVP STA (00:23)
[2022-07-10] MEDS ORDERED: SODIUM CHLORIDE 0.9% 1,000 ML IV STA (00:23)
[2022-07-10] MEDS ORDERED: ORPHENADRINE 30 MG/ML 2 ML VIAL IVP STA (00:27)
--- NOTE | 2022-07-10 00:32 | ED ---
Neck Injury/Pain HPI - General Chief Complaint: Neck Pain/Injury Stated Complaint: Neck pain Time Seen by Provider: 07/10/22 00:09 Source: RN notes reviewed Mode of arrival: ambulatory Limitations: no limitations - History of Present Illness Initial Comments: This is a 32-year-old female presents to emergency department complaining of neck pain and headache after having cervical manipulation yesterday by a chiropractor. Patient was also seen here at the end of May for facial droop. Patient states that since then she has had continued pain in neck, to a lesser extent the right shoulder, has had some dizziness, neck pain, and recurrent headaches. Patient states the pain in the neck is much worse after manipulation. Pain is exacerbated by movement, somewhat exacerbated by palpation. Patient denying any vision or hearing changes. No slurred speech. No gait disturbance. Patient states that her regular physician has been giving her amitriptyline for pain. no fever or chills, no changes in vision or hearing, no sore throat or diffic ulty with speech, no chest pain or shortness of breath, no abdominal pain, no nausea or vomiting, no changes in urination or bowel movements, no numbness or tingling,, no skin rashes or lesions. Past medical, surgical, social, and family history reviewed. NOTE that the patient stating that her right arm has been weak ever since she was seen here at the previous visit in late May. MD Complaint: neck pain - Related Data Home Medications Medication Instructions Recorded Confirmed Multivitamins, Thera [Multivitamin 1 tab PO DAILY 12/09/18 12/09/18 (formulary)] Omeprazole 20 mg PO DAILY 12/09/18 12/09/18 Previous Rx's Medication Instructions Recorded Albuterol Sulfate [Proair Hfa] 1 - 2 puff INHALATION Q6HR PRN #1 08/22/19 inhaler guaiFENesin-DM 600/30MG [Mucinex 1 each PO Q12HR #10 tab.er.12h 08/22/19 Dm] predniSONE 50 mg PO DAILY #5 tablet 08/22/19 predniSONE 50 mg PO DAILY #5 tab 06/22/22 Acetaminophen-Codeine 300-30mg 1 each PO Q6H PRN #12 tablet 07/10/22 [Tylenol w/codeine #3] Cyclobenzaprine [Flexeril] 10 mg PO TID PRN #20 tab 07/10/22 Naproxen [Naprosyn] 375 mg PO Q12HR PRN #20 tablet 07/10/22 Allergies Allergy/AdvReac Type Severity Reaction Status Date / Time No Known Allergies Allergy Verified 07/09/22 22:45 Review of Systems ROS Statement: Those systems with pertinent positive or pertinent negative responses have been documented in the HPI. ROS Other: All systems not noted in ROS Statement are negative. Past Medical History Past Medical History: No Reported History History of Any Multi-Drug Resistant Organisms: None Reported Past Surgical History: Section Additional Past Surgical History / Comment(s): abdominal surgery for twisted bowel, wisdom teeth Past Psychological History: Anxiety Smoking Status: Never smoker Past Alcohol Use History: None Reported Past Drug Use History: None Reported General Exam - General Exam Comments Initial Comments: Vital signs stable, patient afebrile. Cranial nerves II through XII are intact. Patient alert and oriented 4. Limitations: no limitations General appearance: alert, in no apparent distress Head exam: Present: atraumatic, normocephalic, normal inspection Eye exam: Present: normal appearance, PERRL, EOMI. Absent: scleral icterus, conjunctival injection, periorbital swelling ENT exam: Present: normal exam, mucous membranes moist. Absent: normal external ear exam Neck exam: Present: normal inspection. Absent: tenderness, meningismus, lymphadenopathy Respiratory exam: Present: normal lung sounds bilaterally, chest wall tenderness, accessory muscle use. Absent: respiratory distress, wheezes, rales, rhonchi, stridor, decreased breath sounds, prolonged expiratory Cardiovascular Exam: Present: regular rate, normal rhythm, normal heart sounds. Absent: systolic murmur, diastolic murmur, rubs, gallop, clicks GI/Abdominal exam: Present: soft, normal bowel sounds. Absent: distended, tenderness, guarding, rebound, rigid Extremities exam: Present: normal inspection, full ROM, normal capillary refill, other (Nonspecific weakness of the right arm). Absent: tenderness, pedal edema, joint swelling, calf tenderness Back exam: Present: normal inspection Neurological exam: Present: alert, oriented X3, CN II-XII intact, normal gait, reflexes normal. Absent: abnormal gait, motor sensory deficit Expanded Patient oriented to: Present: person, place, time Speech: Present: fluid speech Cranial nerves: EOM's Intact: Normal, Gag Reflex: Normal, Tongue Deviation: Normal, Nystagmus: Normal, Facial Sensation: Normal, Facial Palsy with Forehead Movement: Normal, Facial Palsy without Forehead Movement: Normal Cerebellar function: Finger to Nose: Normal, [place]: Normal Motor strength exam: RUE: 4, LUE: 5, RLE: 5, LLE: 5 Eye Response: (4) open spontaneously Motor Response: (6) obeys commands Verbal Response: (5) oriented [place] Total: 15 Psychiatric exam: Present: normal affect, normal mood. Absent: anxious, flat affect Skin exam: Present: warm, dry, intact, normal color. Absent: rash, cyanosis, diaphoretic, erythema Course Vital Signs 07/09/22 07/10/22 22:44 01:17 Temperature 98.3 F 98.2 F Pulse Rate 102 H 86 Respiratory 18 18 Rate Blood Pressure 132/81 138/79 O2 Sat by Pulse 100 99 Oximetry - Reevaluation(s) Reevaluation #1: 07/10/22 02:15 Medical record is reviewed Symptoms are improved here in the emergency department Patient is informed of results and questions answered Patient in no distress patient alert and oriented 4, cranial nerves II through XII intact. Medical Decision Making - Medical Decision Making Computed tomography scan of the brain with CT angiogram of the head and neck indicated due to patient's worsening symptomology after chiropractic manipulation. Note the patient's right arm has been weak since her visit here in late May. Does raise the suspicion of possible nerve impingement possible focal neuro deficit. Differential diagnosis, [place] skeletal pain, vertebral artery dissection, cervical disc herniation. Given the patient's symptomology, less likely other etiologies such as multiple sclerosis or Arnold-Chiari malformation. Patient's workup again essentially negative here. CBC unremarkable. CMP unremarkable. EKG was nondiagnostic. Troponin was negative. CT scans were negative. Suspect the patient has musculoskeletal pain. Patient has appointment with neurology. I do believe this is adequate disposition of this patient. Discussed conservative therapy otherwise. Patient concurs with this treatment plan. All results discussed. Patient was told to return to the ER for any signs or symptoms worsen. Told to return immediately if any other problems arise. All questions answered. Treatment plan discussed. Patient in agreement Every effort has been made to ensure accuracy of this dictation. However, due to the limitations of electronic medical records and dictation devices, errors in charting still occur. Directed Dr. Mccall - Lab Data Result diagrams: 07/10/22 00:43 07/10/22 00:43 Lab Results 07/10/22 07/10/22 07/10/22 Range/Units 00:43 00:43 00:43 WBC 5.5 (3.8-10.6) k/uL RBC 4.50 (3.80-5.40) m/uL Hgb 14.6 (11.4-16.0) gm/dL Hct 43.0 (34.0-46.0) % MCV 95.5 (80.0-100.0) fL MCH 32.5 (25.0-35.0) pg MCHC 34.0 (31.0-37.0) g/dL RDW 12.1 (11.5-15.5) % Plt Count 304 (150-450) k/uL MPV 10.4 Neutrophils % 68 % Lymphocytes % 21 % Monocytes % 5 % Eosinophils % 3 % Basophils % 2 % Neutrophils # 3.8 (1.3-7.7) k/uL Lymphocytes # 1.2 (1.0-4.8) k/uL Monocytes # 0.3 (0-1.0) k/uL Eosinophils # 0.2 (0-0.7) k/uL Basophils # 0.1 (0-0.2) k/uL Sodium 138 (137-145) mmol/L Potassium 4.2 (3.5-5.1) mmol/L Chloride 102 (98-107) mmol/L Carbon Dioxide 25 (22-30) mmol/L Anion Gap 11 mmol/L BUN 15 (7-17) mg/dL Creatinine 0.67 (0.52-1.04) mg/dL Est GFR (CKD-EPI)AfAm >90 (>60 ml/min/1.73 sqM) Est GFR (CKD-EPI)NonAf >90 (>60 ml/min/1.73 sqM) Glucose 80 (74-99) mg/dL Calcium 9.8 (8.4-10.2) mg/dL Troponin I <0.012 (0.000-0.034) ng/mL HCG, Qual Not Detected - EKG Data EKG Comments: EKG interpreted by me at 1:10 AM reveals sinus rhythm with a rate of 85, normal intervals, normal axis, no evidence of significant ST elevation or depression. Compared to the previous study from 06/21/2022 there is no significant change. - Radiology Data Radiology results: report reviewed, image reviewed Independent interpretation of the CT angiogram of the head and neck as well as a plain CT of the brain by me reveals no evidence of acute pathology. Interpretation of the chest x-ray by me reveals no evidence of acute pathology. I did review the radiology interpretation. Disposition Clinical Impression: Strain of neck muscle, Cephalgia, Cervical radiculopathy Disposition: HOME SELF-CARE Condition: Good Instructions (If sedation given, give patient instructions): Cervical Strain (ED) Additional Instructions: Follow-up with your regular physician as directed. Return to the ER immediately if any symptoms worsen, new symptoms arise, or any other problems develop. Do not drive vehicles or operate machinery while taking the pain medication or the muscle relaxer. Prescriptions: Cyclobenzaprine [Flexeril] 10 mg PO TID PRN #20 tab PRN Reason: Spasms Naproxen [Naprosyn] 375 mg PO Q12HR PRN #20 tablet PRN Reason: Pain Acetaminophen-Codeine 300-30mg [Tylenol w/codeine #3] 1 each PO Q6H PRN #12 tablet PRN Reason: Pain Is patient prescribed a controlled substance at d/c from ED?: No Referrals: Gus Cleary MD [Primary Care Provider] - 1-2 days Dima Lopez DO [STAFF PHYSICIAN] - As Soon As Possible Time of Disposition: 02:12
[2022-07-10 01:20] LABS: Basophils # (A) 0.1 k/uL (0-0.2); Basophils % (A) 2 %; Eosinophils # (A) 0.2 k/uL (0-0.7); Eosinophils % (A) 3 %; HGB 14.6 gm/dL (11.4-16.0); Lymphocytes # (A) 1.2 k/uL (1.0-4.8); Lymphocytes % (A) 21 %; MCH 32.5 pg (25.0-35.0); MCV 95.5 fL (80.0-100.0); Mean Platelet Volume 10.4; Monocytes # (A) 0.3 k/uL (0-1.0); Monocytes % (A) 5 %; Neutrophils # (A) 3.8 k/uL (1.3-7.7); Neutrophils % (A) 68 %; Platelet Count 304 k/uL (150-450); RDW 12.1 % (11.5-15.5); WBC 5.5 k/uL (3.8-10.6)
--- NOTE | 2022-07-10 01:30 | CT ---
EXAMINATION TYPE: CT brain wo con DATE OF EXAM: 07/10/2022 COMPARISON: 06/22/2022 HISTORY: Neck pain and headache. Post chiropractic manipulation CT DLP: 1126.2 mGycm Automated exposure control for dose reduction was used. Images of the brain obtained with no contrast. The ventricles have normal size. There is no mass effect or midline shift. No sign of intracranial he morrhage. The calvarium is intact. No evidence of cerebral edema. There is normal aeration of the mas toid sinuses. IMPRESSION: Normal unenhanced head CT scan. No change.
[2022-07-10 01:31] LABS: African American GFR (CKD) >90 (>60 ml/min/1.73 sqM); Anion Gap 11 mmol/L; Blood Urea Nitrogen 15 mg/dL (7-17); Calcium 9.8 mg/dL (8.4-10.2); Carbon Dioxide 25 mmol/L (22-30); Chloride 102 mmol/L (98-107); Glucose 80 mg/dL (74-99); Non-African American GFR(CKD) >90 (>60 ml/min/1.73 sqM); Potassium 4.2 mmol/L (3.5-5.1); Sodium 138 mmol/L (137-145)
[2022-07-10 01:35] LABS: HCG,Qualitative Serum Not Detected
--- NOTE | 2022-07-10 01:45 | CT ---
EXAMINATION TYPE: CT angio head neck DATE OF EXAM: 07/10/2022 COMPARISON: None HISTORY: Neck pain and headache. Post chiropractic manipulation CT DLP: 1473.5 mGycm Automated exposure control for dose reduction was used. CONTRAST: Performed with IV Contrast, patient injected with 65 mL of Isovue 370. Images obtained from the aortic arch to the vertex of the brain with IV contrast. There are Three-D p ostprocessed images. There is normal branching pattern of the great vessels on the aortic arch. There is arterial flow in both subclavian arteries. There is arterial flow in the common internal and external carotid arteries bilaterally. There is wide patency of the carotid artery bifurcations. There is arterial flow in bot h vertebral arteries. There is no evidence of carotid or vertebral artery aneurysm or dissection. The re is arterial flow in the vertebral basilar artery system. There is arterial flow in the anterior middle and posterior cerebral arteries bilaterally there is no evidence of intracranial aneurysm or neovascularity. No mass effect no evidence of hemodynamic steno sis. There is normal enhancement of the venous sinuses. IMPRESSION: Negative CT angiogram of the neck. Negative CT angiogram of the brain.
--- NOTE | 2022-07-10 02:03 | XR ---
EXAMINATION TYPE: XR chest 1V portable DATE OF EXAM: 07/10/2022 COMPARISON: 08/22/2019 HISTORY: Back pain TECHNIQUE: FINDINGS: Heart and mediastinum are normal. Lungs are clear. Diaphragm is normal. Bony thorax is norm al. IMPRESSION: Normal chest. No change.
[2022-07-10 02:26] VITALS: BP 128/74; PULSE 81; RESP 16; TEMP 98.4
== END 2022-07-10 02:19 | disposition home or self-care (01) ==
LOC: EC 22:34
DX: S16.1XXA Strain of muscle, fascia and tendon at neck level, initial encounter (principal); M54.12 Radiculopathy, cervical region; F41.9 Anxiety disorder, unspecified; X50.9XXA Other and unspecified overexertion or strenuous movements or postures, initial encounter
CPT/HCPCS: 36415; 93005; 80048; 84484; 85025; 84703; 71045; 70496; 70450; 70498; 99284; 96374; 96375; 96361; J2360; J1885; Q9967

== ENCOUNTER → 2022-12-16 | Outpatient (CLI) | payer BC ==
--- NOTE | 2022-12-16 13:05 | CT ---
EXAMINATION TYPE: CT sinus wo con DATE OF EXAM: 12/16/2022 COMPARISON: None HISTORY: Right sided maxillary swelling. CT DLP: [address] of the paranasal sinuses was performed in the axial and coronal planes. Bone and soft tissue settings are submitted. The paranasal sinuses demonstrate normal aeration and development. The paranasal sinuses are free of air fluid level. Focal mucosal thickening superior left-sided ethm oid air cells. The osteal meatal units are patent bilaterally. The nasal septum is midline. No bony destructive changes are seen within the field of view. IMPRESSION: Focal mucosal thickening superior left-sided ethmoid air cells.
== END | disposition home or self-care (01) ==
LOC: RADCTMAIN 12:34
PROVIDERS: ATTEND Otolaryngology
DX: J32.0 Chronic maxillary sinusitis (principal); J34.89 Other specified disorders of nose and nasal sinuses
CPT/HCPCS: 70486

== ENCOUNTER 2023-02-19 08:02 | Day surgery (SDC) | payer BC ==
[~2023-02-19 08:02] MED LIST: FAMOTIDINE 20 MG/2 ML VIAL IV PRN; HYDROmorphone 0.5 MG/0.5 ML SYRINGE IVP PRN; LACTATED RINGERS 1,000 ML IV SCH; LIDOCAINE 1% (10MG/ML) FOR IV START INTRADERMA PRN; ONDANSETRON 4 MG/2 ML VIAL IVP PRN
[2023-02-19] MEDS: OXYMETAZOLINE 0.05% NASL SPRAY 1 SPRAY BOTTLE EA NOSTRIL PRN ×5 (08:10→08:30)
[2023-02-19] MEDS ORDERED: DEXAMETHASONE SOD PHOSPHATE 4 MG/ML 1 ML VIAL IVP ONE (08:23)
[2023-02-19] MEDS ORDERED: PROPOFOL 10 MG/ML 20 ML VIAL IV ONE (08:33)
[2023-02-19] MEDS ORDERED: fentaNYL (PF) 50 MCG/ML 2 ML AMP ONE (08:33)
[2023-02-19] MEDS ORDERED: MIDAZOLAM 2 MG/2 ML VIAL ONE (08:33)
[2023-02-19] MEDS ORDERED: DEXAMETHASONE SOD PHOSPHATE 10 MG/ML 1 ML VIAL ONE (08:33)
[2023-02-19] MEDS ORDERED: LIDOCAINE 2% INJ 20 MG/ML (2 ML VIAL) ONE (08:33)
[2023-02-19] MEDS ORDERED: SUCCINYLCHOLINE CHLORIDE 200 MG/10 ML VIAL IV ONE (08:33)
[2023-02-19] MEDS ORDERED: LIDOCAINE 1%-EPI 1:100,000 50 ML VIAL SUBMUCOSAL ONE (08:50)
[2023-02-19] MEDS ORDERED: LIDOCAINE 1%/EPI 1:200,000 MPF 10 ML VIAL SUBMUCOSAL ONE ×2 (08:50)
[2023-02-19] MEDS ORDERED: BACITRACIN ZINC 500 UNIT/GM OINT 28.4 GM TUBE TOPICAL ONE (08:52)
--- NOTE | 2023-02-19 09:13 | P.OP ---
Date of Procedure: 02/19/23 Preoperative Diagnosis: Deviated nasal septum Inferior turbinate hypertrophy Postoperative Diagnosis: Same Procedure(s) Performed: Septoplasty Outfracture and submucous resection inferior turbinates Anesthesia: CATAA Surgeon: Canelo Bell Estimated Blood Loss (ml): 5 Pathology: other (Nasal septal bone and cartilage) Condition: stable Disposition: PACU Indications for Procedure: The 33-year-old white female whose had difficulties with chronic nasal airway obstruction bilaterally but more right than left Operative Findings: Nasal septal lesion to the right with obstruction of approximate 80% nasal airway in the cartilaginous and bony septum inferior turbinate hypertrophy also Description of Procedure: DESCRIPTION OF PROCEDURE: The patient was brought to the operative suite, placed in the supine position. The patient underwent induction of general anesthesia with oral endotracheal intubation without difficulty. The patient was prepped and draped in the usual aseptic fashion. 1% lidocaine with 1:100,000 epinephrine was infused submucosally on both sides of the nasal septum. While this was taking vasoconstrictive effect, the inferior turbinates were infractured with a Woodson elevator. Partial submucous resection of the inferior turbinates was performed with Coblation device ablating a portion of the submucosal soft tissue. The inferior turbinates were then outfractured with a Woodson elevator. A left hemitransfixion incision was then made through the mucoperichondrial. Mucoperiosteal flap on the left elevated. Bony cartilaginous junction was disarticulated and mucoperiosteal flap on the right was elevated. Bony nasoseptal deformity were removed with Naty forceps and an inferior cartilaginous strip was removed, leaving a full 1.5 cm caudal strut. Checking intranasally, this corrected the nasal septal deformities and the hemitransfixion incision was closed with running 4-0 chromic suture. The bilateral Reagan airway splints coated in bacitracin ointment were placed in the nasal cavities and sutured transseptally with 4-0 nylon suture. The patient was then suctioned in an orogastric fashion. The patient was allowed to emerge from general anesthesia, having tolerated the procedure well and was extubated in the operating suite, transferred to postoperative recovery area in satisfactory condition.
[2023-02-19 09:32] VITALS: TEMP 96.8
[2023-02-19 10:03] VITALS: RESP 16
[2023-02-19] MEDS ORDERED: HYDROcodone/APAP 5-325MG 1 EACH TAB ONE (10:09)
[2023-02-19] MEDS ORDERED: HYDROcodone/APAP 5-325MG 1 EACH TAB PO ONE (10:11)
[2023-02-19 10:41] VITALS: BP 138/88; PULSE 65
== END 2023-02-19 10:58 | disposition home or self-care (01) ==
LOC: OR 08:02
PROVIDERS: ATTEND Otolaryngology
DX: J34.2 Deviated nasal septum (principal); J34.3 Hypertrophy of nasal turbinates; J45.909 Unspecified asthma, uncomplicated; Z87.891 Personal history of nicotine dependence; Z98.891 History of uterine scar from previous surgery; Z79.899 Other long term (current) drug therapy
CPT/HCPCS: 81025; 88300; 30520; J2250; J0330; J1100 ×2; J0690; J2405; J3010; J2704; J2001